=== PATIENT | male | born 1965 | race Caucasian/White ===

== ENCOUNTER 2021-09-02 12:15 | Emergency (ER) | payer MEDICARE ==
[~2021-09-02] VITALS: Ht 170.2 cm; Wt 61.6 kg
[2021-09-02 12:34] VITALS: BP 240/109
--- NOTE | 2021-09-02 13:08 | RAD ---
XR HAND_LEFT 3 VIEWS Clinical indications: Reason: pain / Spl. Instructions: / History: Findings: No acute fracture or dislocation or osteolytic process is evident. 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 There is a linear metallic foreign b lily measuring 2 mm in length within the dorsal lateral soft tissues of the distal second digit at the level of distal phalanx. IMPRESSION: No acute osseous abnormality is evident. Small 2 mm metallic foreign body within the seco nd digit. Electronically signed by: Matt Hess MD (09/02/2021 1:06 PM) [id number]
--- NOTE | 2021-09-02 14:44 | PHYS DOC ---
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 Patient states he takes his seizure medicine as he supposed to. Patient denies any new injuries. States the pain is constant. Denies anything relieving the pain. (CRYSTAL POWER CHART COLLECTOR) Review of Systems: Review of Systems: Constitutional: Denies fever or chills. [] Musculoskeletal: Reports left hand pain Integument: Denies rash. [] Neurologic: Denies headache, focal weakness or sensory changes. [] Psychiatric: Denies depression or anxiety. [] (CRYSTAL POWER CHART COLLECTOR) Heart Score: C/O Chest Pain: N/A Risk Factors: Risk Factors: DM, Current or recent (<one month) smoker, HTN, HLP, family history of CAD, obesity. Risk Scores: Score 0 - 3: 2.5% MACE over next 6 weeks - Discharge Home Score 4 - 6: 20.3% MACE over next 6 weeks - Admit for Clinical Observation Score 7 - 10: 72.7% MACE over next 6 weeks - Early Invasive Strategies (CRYSTAL POWER CHART COLLECTOR) Physical Exam: PE: Constitutional: Well developed, well nourished, no acute distress, non-toxic appearance. [] Skin: Warm, dry, no erythema, no rash. [] Back: No tenderness, no CVA tenderness. [] Extremities: Left hand with no obvious deformity, tenderness along the left thumb, no scaphoid tenderness, full range of motion to the left hand and fingers the patient is very fidgety. Adequate radial, medial, ulnar sensation to the left hand. +2 left radial pulse. Cap refill less than 2 seconds to left fingers. Neurologic: Alert and oriented X 3, normal motor function, normal sensory function, no focal deficits noted. [] Psychologic: Flat affect (CRYSTAL POWER CHART COLLECTOR) Current Patient Data: Vital Signs: Vital Signs Date Time Temp Pulse Resp B/P (MAP) Pulse Ox O2 Delivery O2 Flow Rate FiO2 09/02/21 12:34 98.9 65 24 240/109 (152) 100 Room Air 98.9 (CRYSTAL POWER APRN) EKG: EKG: [] (CRYSTAL POWER APRN) Radiology/Procedures: Radiology/Procedures: []PROCEDURE: HAND LEFT 3V XR HAND_LEFT 3 VIEWS Clinical indications: Reason: pain / Spl. Instructions: / History: Findings: No acute fracture or dislocation or osteolytic process is evident. 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 There is a linear metallic foreign body measuring 2 mm in length within the dorsal lateral soft tissues of the distal second digit at the level of distal phalanx. IMPRESSION: No acute osseous abnormality is evident. Small 2 mm metallic foreign body within the second digit. Electronically signed by: Cristóbal Hess MD (09/02/2021 1:06 PM) [id number] DICTATED and SIGNED BY: CRISTÓBAL HESS MD DATE: 09/02/21 [id number] (CRYSTAL POWER APRN) Course & Med Decision Making: Course & Med Decision Making Pertinent Labs and Imaging studies reviewed. (See chart for details) This a 56-year-old male patient presented to the ED today with left hand pain that began 1-1/2 months ago after having a seizure. Left hand x-rays were negative for any acute findings, noted for small 2 mm metallic foreign body within the second digit. Medical splint applied to the left hand by the ED RN, neurovascular exam done by me is intact. Ice elevation encouraged. Follow-up with Ortho. Patient's blood pressure was 240/109 HR 65 patient states he has history of hypertension and refused to take medicine in the ED. He states he has a home health nurse who takes care of him and does not want any medicine for high blood pressure in the ED. Advised to follow-up with the PCP. Educated on the dangers of uncontrolled hypertension. Provided orthopedic doctor for follow-up. (CRYSTAL POWER APRN) Course & Med Decision Making I was the Attending physician on the above date of service of this patient. This patient was evaluated, examined, treated, and dispositioned from the emergency department by the mid-level practitioner. Although I was working at the time , no assistance was requested. Electronically signed, Diaz Rand DO (DIAZ RAND DO) Jannet Disclaimer: Jannet Disclaimer: This electronic medical record was generated, in whole or in part, using a voice recognition dictation system. (CRYSTAL POWER APRN) Departure Departure Impression: Primary Impression: Sprain of left hand Qualified Codes: S63.92XA - Sprain of unspecified part of left wrist and hand, initial encounter Additional Impressions: Seizure Accelerated hypertension Disposition: HOME / SELF CARE / HOMELESS Condition: STABLE Referrals: NO PCP (PCP) NATHALIA CASTANEDA DO follow up in one week Patient Instructions: Hypertension, Joint Sprain Additional Instructions: You were seen for left hand pain, your left hand x-rays were negative for any fractures or dislocations. You have some metallic objects in your left index finger. We highly advise you to follow-up with the provided orthopedic doctor. Also follow-up with your primary care doctor for high blood pressure management. CRYSTAL POWER APRN Sep 02, 2021 14:44 DIAZ RAND DO Sep 03, 2021 16:12
== END 2021-09-02 14:49 | disposition home or self-care (01) ==
LOC: ER 12:15
DX: S63.92XA Sprain of unspecified part of left wrist and hand, initial encounter (principal); R56.9 Unspecified convulsions; I10 Essential (primary) hypertension; X58.XXXA Exposure to other specified factors, initial encounter; Y93.89 Activity, other specified; Y92.89 Other specified places as the place of occurrence of the external cause; Y99.8 Other external cause status
CPT/HCPCS: 29125; 73130; 99283